=== PATIENT | male | born 1940 | race Caucasian/White ===

== ENCOUNTER 2017-06-11 00:27 | Day surgery (SDC) | payer MEDICARE ==
[2017-06-11] MEDS ORDERED: 0.9% Sodium Chloride 1,000 ML ONE (15:47)
[2017-06-12] MEDS ORDERED: ATOR20TA65 PO (13:21)
[2017-06-12] MEDS ORDERED: LISI-567 PO (13:21)
[2017-06-12] MEDS ORDERED: CARV6.252 PO (13:21)
[2017-06-12] MEDS ORDERED: ASPI81TA3 PO (13:21)
[2017-06-12] MEDS ORDERED: FURO40TA4 PO (13:23)
[2017-07-04] MEDS ORDERED: SPIR25TA3 PO (15:09)
[2017-07-04] MEDS ORDERED: LORA10CA9 PO (15:09)
[2017-07-04] MEDS ORDERED: TORS20TA3 PO (15:09)
[2017-07-04] MEDS ORDERED: POLY17PO2 PO (15:09)
[2017-07-04] MEDS ORDERED: BENZ100C8 PO (15:09)
[2017-07-04] MEDS ORDERED: CARV6.252 PO (15:09)
== END 2017-06-11 23:59 ==
LOC: SOUO 00:27
PROVIDERS: ATTEND Internal Medicine
DX: I42.9 Cardiomyopathy, unspecified (principal)

== ENCOUNTER 2017-06-11 07:46 | Inpatient (IN) | payer MEDICARE ==
[2017-06-11] VITALS (14 sets, daily range): BP systolic 112–138; BP diastolic 60–95; PULSE 36–83; RESP 12–20; O2SAT 93–99
[~2017-06-11] VITALS: Ht 170.2 cm; Wt 85.5 kg
[2017-06-11] MEDS ORDERED: Polyethylene Glycol (PEG) 17 Gm Powder PO PRN (12:20)
[2017-06-11] MEDS ORDERED: Alum-Mag Hydrox-Simeth 30 mL Suspension PO PRN (12:20)
[2017-06-11] MEDS ORDERED: Ondansetron 2 mg/mL 2 mL Inj IVPUSH PRN ×2 (12:20→20:25)
--- NOTE | 2017-06-11 15:34 | PCM.HPMED ---
Subjective Date of Service Jun 11, 2017 Primary Provider: Admitting Physician: Rick Aragon MD Primary Care Physician: David Smith MD Attending Physician: Rick Aragon MD Admit Status: Direct Admit Chief Complaint: CHF with reduced EF History of Present Illness: Victor M Anderson is a 77 year old man with a PMH of CAD with prior OH, DM2, Hypercholesterolemia, and HTN who presents as a direct admit from [facility] following an admission there for decompensated heart failure found to have an EF of 10-15%. The patient initially presented on 06/05/[address] [facility] with SOB and increasing LE edema. He underwent successful diuresis and was essentially hemodynamically stable with improved SOB. He underwent ECHO to determine his cardiac function post diuresis, and cardiac function was found to be markedly worse than his prior ECHO just several months ago with a decrease of EF from about 50% to 10-15%. Dr Deras from our cardiology team was contacted and the patient was transferred to our facility to undergo catheterization to determine if there was any reversible component to the patient's worsening cardiac function. At the time of arrival the patient denies chest pain, SOB, palpitations, nausea, vomiting, diarrhea, or diahporesis. Review of Systems: Comprehensive ROS negative except as listed above in the HPI Allergies Coded Allergies: Blandford Tree (Verified Allergy, Severe, Stuffy nose/head, trouble breathing, 06/11/17) Uncoded Allergies: Sea Food (Allergy, Severe, General Hives, Respiratory Difficulty, 06/11/17) Seasonal Allergies (Allergy, Mild, Respiratory Dificulty, Congestion, ) Allergic to hay, plants in the environment. Take allergy medication for that. Home Medications Flomax (dose not specified) Aspirin 81 mg PO daily Atenolol 50 mg PO daily Benzonatate 100 mg, TID Carvedilol 6.25 mg PO daily Lisinopril 20 mg PO daily Loratidine 10 mg PO daily Simvastatin 20 mg PO daily PMH Hypercholesterolemia CAD with prior OH DM2(borderline) HTN Surgical History Coronary Catheterization with stenting Deviated Septum . Family History Mother and sibling with DM2 Social History Hx Alcohol Use: No Hx Substance Use: No Living Arrangement: with Family Exam Vital Signs Vital Sign - Last Date Time Temp Pulse Resp B/P Pulse Ox O2 Delivery O2 Flow Rate FiO2 8/1/17 12:45 36.5 36 18 136/64 96 Room Air Exam Gen: A/O x3 pleasant cooperative gentleman in NAD Neck: Supple, non tender, no thyromegaly, no JVD HEENT: PERRL, EOMI, no scleral icterus, no conjunctival pallor CV: RRR, no murmurs rubs or gallops Resp: Lungs CTA BL, no wheezing rales or rhonchi Abd: No rebound guarding or tenderness, moderate size reducible umbilical hernia without erythema of pain Extr: No cyanosis clubbing or edema Neuro: CN 2-12 grossly intact, no focal neurologic deficit Psych: Pleasant and appropriate mood and affect. Assessment & Plan Victor M Anderson is a 77 year old man with a PMH of CAD s/p stenting, HTN, boderline DM2, and hypercholesterolemia who presents as a direct admit from [facility] for heart failure with markedly reduced EF 10-15% significantly worsened since prior ECHO earlier this year. The patient was transferred to undergo catheterization in order to determine if there is a reversible cause to his decompensation. Congestive Heart Failure with reduced EF, POA, acute on chronic. Active -Patient underwent ECHO at [facility] which demonstrated EF 10-15%, markedly worse than prior exam -Patient will undergo catheterization to attempt to establish etiology and whether there is a reversible cause to his decompensation -Will defer to Dr. Deras from cardiology for additional recommendations and cardiac medication regimen -Continue Tele monitoring -Continue home Aspirin HTN, POA, chronic. Active -Final recommendations will be determined by Dr. Deras -Continue Atenolol, Carvedilol, and Lisinopril Hypercholesterolemia -Transition home statin to Atorvastatin BPH, POA, chronic. Active -Continue home Flomax Patient Status: Inpatient, anticipated length of stay greater than 2 midnights due to risk of adverse event, severity of condition, and complexity of treatment plan. Pain Evaluation: Adequate Pain Control VTE Prophylaxis Indicated: Contraindicated (Patient will imminently undergo Coronary catheterization) VTE Mechanical Devices: Intermittant Pneumatic CD Resuscitation Status: Limited Interventions (Patient does not wish for Tracheostomy) Attending Statement Please note the patient also has history of coronary artery disease with previous coronary artery stenting. The patient was seen and examined together with Dr. Alvarenga on 06/11/2017 and I agree with the history, exam and plan as outlined in the note above. . Lauro Alvarenga DO Jun 11, 2017 15:34 Rick Aragon MD Jun 13, 2017 08:19
[2017-06-11] MEDS ORDERED: Heparin 10,000 Unit/1,000 mL NS Premix IV ONE ×2 (15:40→17:19)
[2017-06-11] MEDS ORDERED: Heparin 1,000 Units/500 mL NS Premix IV ONE (15:40)
[2017-06-11] MEDS ORDERED: fentaNYL-PF 50 mCg/mL 2 mL Inj ONE (16:06)
[2017-06-11] MEDS ORDERED: Nitroglycerin 50,000 mcg/250 mL D5W Premix IV ONE (16:41)
[2017-06-11] MEDS ORDERED: Heparin 1,000 Unit/mL 10 mL Inj ONE (16:41)
[2017-06-11] MEDS ORDERED: Adenosine 3 mg/mL 2 mL Inj ONE (17:18)
[2017-06-11] MEDS ORDERED: 0.9% Sodium Chloride 250 ML ONE (17:18)
--- NOTE | 2017-06-11 17:24 | PROG NOTE ---
[address] [address] PROGRESS NOTE PATIENT: DAVID RIZO : 1940 MR#: [id number] ADMIT: 06/11/2017 JOB ID: [id number] CARDIOLOGY PROGRESS NOTE: DATE: 06/11/2017 SUBJECTIVE: The patient is transferred today from [facility] to [facility] for cardiac catheterization and possible consideration of intervention for severe presumably ischemic cardiomyopathy. At [facility], the patient diuresed 10 pounds. He says his breathing is better and he is quite satisfied with how he is doing. He is able to lay flat and ambulate up and down the charles with no difficulty. I evaluated this patient at [facility] on June 07, 2017, and at that time recommended medical management that he could lie flat. Now that he can lie flat, he has been transferred here for further care. OBJECTIVE: Vital Signs: He is afebrile. Blood pressure 150/70, pulse 70 beats per minute. Satting 97% on 2 L nasal cannula. A very pleasant, elderly man in no apparent distress. Eyes: No scleral icterus. Neck is supple. No lymphadenopathy. Neck veins are at 7 cm. Heart: Normal S1, S2. No murmurs, rubs, or gallops. Lungs: Clear to auscultation anteriorly. Legs show no lower extremity edema. Right common femoral artery with no bruits. LABORATORY AND RADIOLOGY: Reviewed echocardiogram performed at [place], June 10, 2017, demonstrated severely reduced left ventricular systolic function. Ejection fraction 20% to 25%. Moderate severe global hypokinesis as well as akinesis as well as inferior wall. There is synchronous contraction secondary to left bundle branch block. RV function is normal. Severe left atrial enlargement. Mild to moderate right atrial enlargement. Mild to moderate mitral regurgitation. No significant valvular abnormalities otherwise. The patient's most recent labs are from yesterday, June 10. They show a creatinine of 1.1, sodium 141, potassium 3.9, glucose 121. ASSESSMENT AND PLAN: In summary, this is a delightful 77-year-old man who just underwent cardiac catheterization. He appears to have severe coronary artery disease with occluded right coronary artery via [id number] collaterals. This is a difficult situation. He is not a great surgical candidate due to severe cardiomyopathy and he may best be managed interventionally. Thank you very much for the opportunity to evaluate him.
--- NOTE | 2017-06-11 18:34 | DI95 ---
[address] [address] INTERVENTIONAL CARDIAC CATHETERIZATION PATIENT: DAVID RIZO : 1940 MR#: [id number] ADMIT: 06/11/2017 JOB ID: [id number] PROCEDURE: Fractional flow reserve of the left anterior descending. INDICATION: Borderline lesion in the mid LAD. This patient had a borderline lesion in the LAD. The lesion was towards the end of a tubular stenosis of 30% to 40%. This was followed by an area of dilatation suggesting that this lesion might be tight. However, angiographically it was hard to evaluate this lesion. An FFR was performed. The FFR was 0.75 thereby confirming the severity of this lesion. This patient has severe LV dysfunction. In view of this, no intervention was done. I will be discussing his treatment options with his primary web marketing specialist, Dr. Deras.
--- NOTE | 2017-06-11 19:25 | NUR ---
Arrived 806 - Received report from Kait LAM at [facility]. She said he would be transported via EMS about 0830. Call back number [phone]. 924 - He arrived to [facility] and was settled into his room. His and some other family members came with him as well. His assessment, H/P, allergies, and skin check were completed. The admission nurse was called to complete his medication req. Notified ice resurfacing machine operators. 949 - Discussed his care with Dr. Aragon, Dr. Alvarenga, and the rest of the multidisciplinary care team during morning rounds. Dr. Aragon said that his ejection fraction was 10-15% and that Dr. Deras was following him closely. 1157 - Sent a message to Dr. Aragon asking if the patient could be assessed by the [facility] team and have orders placed. Also, notified him per the patient's notification that his is a [employer] Medicine Doctor and that staff should not even mention the possibility of the patient dying to his when describing procedures and such. He was assessed and orders were placed. 1420 - Called and spoke to Fran from the Website Designer who said the patient would be leaving for the Website Designer about 1600. 1444 - Fran called to say the patient would be leaving for the malthouse laborer closer to 1530 and that he needed two IVs (which the patient already had). 1539 - The Craft Superintendent called to notify this nurse that for the last five minutes his heart rate had decreased to the 50s. She said it was starting to increase again. The patient was sleeping. Dr. Aragon was nearby and was notified. No new orders. 1553 - He left for the Website Designer. Report called to Mauro LAM in [facility]. His family went home. tool storage attendant given report. Care continues.
[2017-06-11 20:06] LABS: BASOPHILS % (AUTO) 0.4 % (0-3); EOSINOPHILS % (AUTO) 4.5 % (0-5); MONOCYTES % (AUTO) 12.3 % (4-12); Mean Corpuscular Hemoglobin 30.2 pg (27.0-35.0); Mean Corpuscular Volume 91.3 fL (81-100); NEUTROPHILS % (AUTO) 66.6 % (40-74); Platelet Count 178 bil/L (150-400)
[2017-06-11] MEDS ORDERED: 0.9% Sodium Chloride 400 ML (4 HRS) IV ONE (20:25)
[2017-06-11] MEDS ORDERED: Sodium Chloride LOK Flush 10 mL Syringe IVFLUSH PRN (20:25)
[2017-06-11] MEDS ORDERED: 0.9% Sodium Chloride 250 ML BOLUS IV PRN (20:25)
--- NOTE | 2017-06-11 21:27 | NUR ---
home medication list arrived in room to complete home medication list. patient not able to confirm list that arrived from [facility]. no eRX available. per patient report spouse is at home but does not speak very good malay so unable to obtain list over the phone from family. patient states that he goes to [facility] which is currently closed. noc rn notified and to pass on to day rn to have them call [facility] for med list in the am 06/12/17.
[2017-06-12 03:26] LABS: BASOPHILS % (AUTO) 0.4 % (0-3); EOSINOPHILS % (AUTO) 5.7 % (0-5); MONOCYTES % (AUTO) 15.1 % (4-12); Mean Corpuscular Hemoglobin 30.7 pg (27.0-35.0); NEUTROPHILS % (AUTO) 61.5 % (40-74); Platelet Count 168 bil/L (150-400)
[2017-06-12 03:53] LABS: Magnesium 2.1 mg/dL (1.6-2.6); Phosphorus 3.7 mg/dL (2.5-4.9)
[2017-06-12 04:33] VITALS: BP 119/80; PULSE 80; RESP 16
--- NOTE | 2017-06-12 06:06 | NUR ---
Groin Site/NPO Patient's right groin site soft, non-tender, with small amount of sanguineous drainage on the dressing that remained unchanged overnight. Patient denies pain. Per report from [facility], patient kept NPO after midnight pending return to laboratory scientist today.
--- NOTE | 2017-06-12 08:03 | CS94 ---
[address] [address] DIAGNOSTIC CARDIAC CATHETERIZATION PATIENT: DAVID RIZO : 1940 MR#: [id number] ADMIT: 06/11/2017 JOB ID: [id number] SERVICE DATE: 06/11/2017 CHIEF COMPLAINT: Shortness of breath. PATIENT PRESENTATION: The patient is a delightful, 77-year-old man who has been having severely progressive shortness of breath for the past few months. Patient was admitted at [facility] and I went to see him there. The patient reported 20 pound weight gain. He was diuresed 10 pounds and transferred for cardiac catheterization. Now he is adequately diuresed and able to lie flat. PROCEDURES PERFORMED: 1. Right and left heart catheterization. 2. Selective coronary angiogram. 3. Right common femoral artery vascular access ultrasound guidance. HEMODYNAMICS: 1. Right atrial pressure is 5 mmHg. Right ventricular pressure is 40 with end-diastolic of 3. Pulmonary artery pressure is 40/20. Pulmonary capillary wedge pressure is 12 mmHg. Left ventricular end-diastolic pressure is 25 mmHg. Aortic pressure 121/61 mL stenosis based on pullback. The patient was in normal sinus rhythm with frequent PVCs during the case. 2. Coronary angiograms: The left main is a normal caliber vessel. It gives rise to LAD and the circumflex. There is some mild ostial disease but it does not dampen on engagement and it demonstrates excellent blow back. 3. LAD gives rise to a first diagonal branch followed by an aneurysmal outpouching. There is a septal tensile tester coming out of that area of aneurysmal outpouching. The area immediately prior to the first diagonal branch has a crain band appearance. This is best appreciated on cross-table lateral view. 4. The LAD is diffusely diseased. The only focal lesion is that possible intermediate 50% lesion proximal to the first diagonal branch. 5. The LAD gives rise to a medium-sized second diagonal branch, small 3rd and 4th diagonal branches. Otherwise, no obstructive lesions are seen. 6. Circumflex is a nondominant vessel. It gives rise to first bifurcating obtuse marginal branch that is a medium-sized vessel, 2nd medium obtuse marginal branch and a third obtuse marginal branch which appears to feed PDA and RCA retrograde via collateral circulation. 7. There is 50% disease present in the proximal portion of the circumflex. This is best appreciated on the spider view. Otherwise, no obstructive lesions are seen. 8. The right coronary artery is a dominant vessel. It gives rise to PDA and posterior lateral branch but it appears to be occluded proximally. There appears to be a previously deployed stent in the right coronary artery. It is in the proximal vessel. It is complicated by 50% long in-stent restenosis lesion. Then right coronary artery gives rise to a bifurcating medium sized RV branch and then it is subtotally occluded. 9. Cardiac output via Adriano method is 4.7 L/minute with cardiac index of 2.4 L/minute per m2. Thermodilution cardiac output is 3.9 L/min with index of 1.9 L/minute per m2. IMPRESSION: 1. Intermediate 50% proximal left anterior descending lesion. 2. Intermedius 50% proximal circumflex lesion. 3. Chronic total occlusion of right coronary artery distal to the right ventricular branch. The posterior descending artery appears to be fed via [id number] collaterals. 4. Severe three-vessel disease involving 50% proximal left anterior descending, 50% proximal circumflex and ostial OM1, and chronic total occlusion of the right coronary artery fed via [id number] collaterals. This is best appreciated in LYN cranial view. PLAN: Because the lesions in prox LAD and proximal circumflex are intermediate, I appreciate Dr. Mabry's expertise and possible fractional flow reserve evaluation. In terms of hemodynamics, the patient's pulmonary capillary wedge pressure is 12.
[2017-06-12 09:25] VITALS: BP 117/55; PULSE 89; RESP 20; O2SAT 94
[2017-06-12 11:13] VITALS: PULSE 68
--- NOTE | 2017-06-12 12:26 | PROG NOTE ---
[address] [address] PROGRESS NOTE PATIENT: DAVID RIZO : 1940 MR#: [id number] ADMIT: 06/11/2017 JOB ID: [id number] CARDIOLOGY PROGRESS NOTE: DATE: 06/12/2017 SUBJECTIVE: This morning, the patient was tearful and anxious. He understands that cardiac catheterization demonstrated hemodynamically significant proximal LAD lesion. FFR was 0.75 confirming the severity of this lesion, so the patient has severe proximal LAD lesion, as well as chronic total occlusion of the right and moderate lesion of the circumflex in the setting of severe ischemic cardiomyopathy with ejection fraction of 15%. The patient is tearful. He said he did not want to go through more tests and diagnostics and would like to go home and think about his options. OBJECTIVE: Vital signs reviewed. Temperature 36.5, blood pressure 117/55, he is satting 94% on room air. Eyes: No scleral icterus. Heart: Normal S1, S2. No murmurs. Lungs: Clear to auscultation anteriorly. Abdomen is soft, positive bowel sounds. No hepatosplenomegaly. Extremities: Warm and well perfused. No clubbing, cyanosis, or edema. Skin: No rashes or lesions. LABORATORY DATA: Labs reviewed. His CBC is good. His hematocrit is good. His creatinine is good. He has mildly reduced albumin today. ASSESSMENT AND PLAN: A 77-year-old man with severe ischemic cardiomyopathy and severe proximal left anterior descending disease and occluded right coronary artery. He declines intervention at this time. The plan for this patient is to go home today on current medicines including aspirin, carvedilol, lisinopril, atorvastatin and Lasix. I recommend for him to be fitted with a Life Vest and he understands the rationale for this. I will follow up with him in clinic. I will also request an outpatient surgical consultation to render an opinion of his eligibility for surgical revascularization. We will meet in clinic and discuss his treatment options which include medical therapy, plus possible revascularization; either percutaneous or surgical, as well as device therapy. Since he has left bundle branch block and cardiomyopathy, he would benefit from biventricular implantable cardioverter-defibrillator if that is what he chooses. Thank you very much for the opportunity to participate in this patient's care.
--- NOTE | 2017-06-12 12:30 | NUR ---
Social Work-initial assessment/ readiness for discharge: Data:See initial assessment. Pt is a 77 y/o male who was admitted on 06/11/17 for CHF per H&P. Pt's insurance is [facility] and PCP is David Smith MD. EMR Reviewed. SW met with pt at bedside, SW role explained. Pt is alert and oriented x3. Pt resides at home with his in [place] where he remains independent with ADLS. Pt does not use any DME and does drive. pt has no HH or SNF history. Pt has no terminal worker care insurance or VA benefits. SW discussed DPOA/advanced directive, information has been provided. Pt confirms his will provide transport home at discharge. SW provided pt with discharge planning checklist, encouraged pt to call with any questions, phone number provided. No anticipated discharge needs identified. SW will continue to follow if needs arise. Assessment:Pt who is independent at baseline. Plan:Pt to discharge home when medically stable via POV. No anticipated discharge needs identified. SW will continue to follow if needs arise. PHIL Carter Addendum: 06/12/17 at 1241 by JOSH AYALA Amended: Links added.
[2017-06-12 13:03] VITALS: BP 119/74; PULSE 71; RESP 20; O2SAT 95
--- NOTE | 2017-06-12 13:16 | PCM.DIMED ---
Malick Neri DO 06/12/17 1316: Discharge Instructions Date of Service Jun 12, 2017 Dates of Hospitalization Jun 11, 2017 at 09:26 Discharge Diagnosis Discharge Diagnosis Congestive Heart Failure with reduced EF, POA, acute on chronic. Active HTN, POA, chronic. Active Hypercholesterolemia BPH, POA, chronic. Active Medication Instructions Additional med instructions Please continue to take your medications as outlined in the hospital Aspirin 81 mg daily Carvedilol 6.25 mg daily Lisinopril 20 mg daily Atorvastatin 20 mg at night Furosemide 40 mg daily Test Results Test Results Abdominal x-ray reveals only findings related to your congestive heart failure. No other abdominal findings noted. Diet Discharge Diet: Low fat, Low Sodium, Heart Healthy Activity Discharge Activity: Limited until seen by PCP Call your provider Call your provider for: Fever or Chills, Shortness of breath, Bleeding, Chest pain, Vomitting, Excessive diarrhea, Weakness (unilateral) Patient Instructions Patient Instructions You initially came to the hospital for shortness of breath and increasing leg swelling. Based on the results of your echocardiogram done at [facility], your congestive heart failure has worsened significantly. A catheterization done here in the hospital shows a lesion in the LAD artery of your heart, however this was not able to be treated at this time by cardiology. Please follow-up with cardiology for further recommendations. Please follow medication regimen as described above. You will be fitted with a Life Vest prior to being discharged from the hospital. Follow-up plan Follow-up closely with cardiology for further recommendations and/or possible interventions. Follow-up Provider: Yeni Deras MD Follow-up with PCP in: 2 weeks Provider: David Smith MD Follow-up in: 1 week CHF Clinic: 1 week Rick Aragon MD 06/13/17 0820: Discharge Instructions Attending's Statement The patient was seen and examined together with Dr. Neri on 06/12/2017 and I agree with the history, exam and plan as outlined in the note above. . Malick Neri DO Jun 12, 2017 13:16 Rick Aragon MD Jun 13, 2017 08:20
[2017-06-12] MEDS ORDERED: ATOR20TA65 PO (13:21)
[2017-06-12] MEDS ORDERED: ASPI81TA3 PO (13:21)
[2017-06-12] MEDS ORDERED: CARV6.252 PO (13:21)
[2017-06-12] MEDS ORDERED: LISI-567 PO (13:21)
[2017-06-12] MEDS ORDERED: FURO40TA4 PO (13:23)
--- NOTE | 2017-06-12 14:23 | NUR ---
Social Work: Discharge Data: Pt is on day 1 of hospitalization. EMR reviewed. D/C orders are in. No d/c planning needs at this time. STUDENT OFFICER will continue to follow if needs arise. Assessment: Pt who is independent at baseline. Plan: Pt will d/c home via POV today. No d/c planning needs at this time. STUDENT OFFICER will continue to follow if needs arise. PHIL Hines
[2017-06-12 16:13] VITALS: BP 137/77; PULSE 76; RESP 20; O2SAT 95
--- NOTE | 2017-06-12 19:05 | PCM.DC.MED ---
Discharge Summary Date of Service Jun 12, 2017 Dates of Hospitalization Date of Hospital Admission Jun 11, 2017 at 09:26 Date of Discharge: Jun 12, 2017 Providers: Admitting Physician: Rick Aragon MD Primary Care Physician: David Smith MD Attending Physician: Rick Aragon MD Diagnosis at Time of Discharge Diagnosis at Time of Discharge Congestive Heart Failure with reduced EF, POA, acute on chronic. Active HTN, POA, chronic. Active Hypercholesterolemia BPH, POA, chronic. Active Consultations Cardiology: Dr. Deras Procedures XRay, CTs & MRIs X-RAY ACUTE ABDOMINAL SERIES IMPRESSION: 1. Findings suggestive of cardiomegaly and acute congestive heart failure. 2. No acute process in the abdomen. 3. Discussed with Dr. Mathis in the urgent care clinic. Dictated by: Jane Lowe MD on 06/02/2017 at 15:10 Transcribed by: ROSA on 06/02/2017 at 19:21 Approved by: Jane Lowe MD on 06/04/2017 at 8:28 Invasive Procedures DIAGNOSTIC CARDIAC CATHETERIZATION IMPRESSION: 1. Intermediate 50% proximal left anterior descending lesion. 2. Intermedius 50% proximal circumflex lesion. 3. Chronic total occlusion of right coronary artery distal to the right ventricular branch. The posterior descending artery appears to be fed via [id number] collaterals. 4. Severe three-vessel disease involving 50% proximal left anterior descending, 50% proximal circumflex and ostial OM1, and chronic total occlusion of the right coronary artery fed via [id number] collaterals. This is best appreciated in LYN cranial view. Yeni Deras MD 06/11/17 6760 Brief History Taken from history of present illness transcribed by Dr. Alvarenga: "Victor M Anderson is a 77 year old man with a PMH of CAD with prior HI, DM2, Hypercholesterolemia, and HTN who presents as a direct admit from [facility] following an admission there for decompensated heart failure found to have an EF of 10-15%. The patient initially presented on 06/05/17 to [facility] with SOB and increasing LE edema. He underwent successful diuresis and was essentially hemodynamically stable with improved SOB. He underwent ECHO to determine his cardiac function post diuresis, and cardiac function was found to be markedly worse than his prior ECHO just several months ago with a decrease of EF from about 50% to 10-15%. Dr Deras from our cardiology team was contacted and the patient was transferred to our facility to undergo catheterization to determine if there was any reversible component to the patient's worsening cardiac function. At the time of arrival the patient denies chest pain, SOB, palpitations, nausea, vomiting, diarrhea, or diahporesis." Hospital Course Victor M Anderson is a 77 year old man with a PMH of CAD s/p stenting, HTN, boderline DM2, and hypercholesterolemia who presents as a direct admit from [facility] for heart failure with markedly reduced EF 10-15% significantly worsened since prior ECHO earlier this year. The patient was transferred to undergo catheterization in order to determine if there is a reversible cause to his decompensation. Congestive Heart Failure with reduced EF, POA, acute on chronic. Active -Patient underwent ECHO at [facility] which demonstrated EF 10-15%, markedly worse than prior exam -Patient underwent catheterization in an attempt to establish etiology, he was found to have a lesion of the LAD which was not amenable to stenting at this time. -Per Dr. Deras (cardiology) the patient will be started at this time on aspirin, carvedilol, lisinopril, atorvastatin, Lasix -Dr. Deras would like to have the patient follow-up on an outpatient basis. -LifeVest provided for the patient prior to discharge. HTN, POA, chronic. Active -Continue Carvedilol, Lasix and Lisinopril Hypercholesterolemia -Continue Atorvastatin BPH, POA, chronic. Active -Continue home Flomax Exam Vital Signs (Last) Date Time Temp Pulse Resp B/P Pulse Ox O2 Delivery O2 Flow Rate FiO2 06/12/17 16:13 36.7 76 20 137/77 95 Room Air 06/11/17 19:00 2.00 Exam General: No acute distress, well-developed, well-nourished HEENT: Normocephalic, atraumatic. External ears without defect. Pupils equal, round, and reactive to light and accommodation. Anicteric sclerae, moist conjunctivae. Cardiovascular: Regular rate and rhythm with no murmurs, rubs, or gallops appreciated Pulmonary: Clear to auscultation bilaterally with no crackles, wheezes, or rhonchi. Normal respiratory effort with no use of accessory muscles. Abdomen: Bowel tones present. Soft, nontender, nondistended. moderate size reducible umbilical hernia non-erythematous Extremities: No clubbing, cyanosis, edema Skin: Normal temperature, turgor, and texture; no rash, ulcers, or subcutaneous nodules appreciated. Neurological: Cranial nerves grossly intact. Reflexes, coordination, and sensory function within normal limits. Normal muscle strength, tone, and bulk. Psychiatric: Normal mood and affect. Alert and oriented to person, place, and time Test 06/11/17 11:13 06/12/17 02:48 Hold Urine Received (Received) White Blood Count 7.4th/mm3 (3.8-10.1) Red Blood Count 4.99mil/mm3 (4.40-5.80) Hemoglobin 15.3g/dL (13.8-17.2) Hematocrit 45.9% (41.0-50.0) Mean Corpuscular Volume 92.0fL (81-100) Mean Corpuscular Hemoglobin 30.7pg (27.0-35.0) Mean Corpuscular Hemoglobin Concent 33.3% (32.0-37.0) Red Cell Distribution Width 14.5% (12.3-15.4) Platelet Count 168bil/L (150-400) Neutrophils (%) (Auto) 61.5% (40-74) Lymphocytes (%) (Auto) 17.0% (14-46) Monocytes (%) (Auto) 15.1% (4-12) Eosinophils (%) (Auto) 5.7% (0-5) Basophils (%) (Auto) 0.4% (0-3) Prothrombin Time 10.7sec (8.1-12.5) Prothromb Time International Ratio 1.00ratio Sodium Level 139mEq/L (134-144) Potassium Level 4.0mEq/L (3.5-5.2) Chloride Level 101mEq/L (97-108) Carbon Dioxide Level 24mmol/L (18-29) Blood Urea Nitrogen 22mg/dL (8-27) Creatinine 0.99mg/dL (0.76-1.27) Estimat Glomerular Filtration Rate 78mL/min (>59) Glucose Level 136mg/dL (60-99) Calcium Level 8.5mg/dL (8.5-10.1) Phosphorus Level 3.7mg/dL (2.5-4.9) Magnesium Level 2.1mg/dL (1.6-2.6) Total Bilirubin 0.5mg/dL (0.0-1.2) Aspartate Amino Transf (AST/SGOT) 25U/L (0-50) Alanine Aminotransferase (ALT/SGPT) 27U/L (0-44) Alkaline Phosphatase 97U/L (25-160) Total Protein 5.6g/dL (6.4-8.4) Albumin 3.2g/dL (3.4-5.0) Discharge Medications Discharge Medications Aspirin Chew (Aspirin Chew) 81 Mg Chew 81 MG PO DAILY Prescribed by: DIANE RUSSO DO Atorvastatin Calcium (Atorvastatin Calcium) 20 Mg Tablet 20 MG PO HS Prescribed by: DIANE RUSSO DO Carvedilol (Carvedilol) 6.25 Mg Tablet 6.25 MG PO DAILY Prescribed by: DIANE RUSSO DO Furosemide (Furosemide) 40 Mg Tablet 40 MG PO DAILY Prescribed by: DIANE RUSSO DO Lisinopril (Lisinopril) 20 Mg Tablet 20 MG PO DAILY Prescribed by: DIANE RUSSO, DO Additional med instructions Please continue to take your medications as outlined in the hospital Aspirin 81 mg daily Carvedilol 6.25 mg daily Lisinopril 20 mg daily Atorvastatin 20 mg at night Furosemide 40 mg daily Followup Plan Disposition: Home Follow-up plan Follow-up closely with cardiology for further recommendations and/or possible interventions. Discharge Diet: Low fat, Low Sodium, Heart Healthy Discharge Activity: Limited until seen by PCP Patient Instructions You initially came to the hospital for shortness of breath and increasing leg swelling. Based on the results of your echocardiogram done at [place], your congestive heart failure has worsened significantly. A catheterization done here in the hospital shows a lesion in the LAD artery of your heart, however this was not able to be treated at this time by cardiology. Please follow-up with cardiology for further recommendations. Please follow medication regimen as described above. You will be fitted with a Life Vest prior to being discharged from the hospital. Follow-up Provider: Yeni Deras MD Follow-up with PCP in: 2 weeks Provider: David Smith MD Follow-up in: 1 week CHF Clinic: 1 week Time spent Greater than 35 minutes spent in documentation and coordination of discharge. Attending Statement The patient was seen and examined together with Dr. Russo on 06/12/2017 and I agree with the history, exam and plan as outlined in the note above. . copies to: David Smith MD, Adam J DO Jun 12, 2017 19:05 Rick Aragon MD Jun 13, 2017 08:20
--- NOTE | 2017-06-12 19:25 | NUR ---
D/C note.. pt has been up amb in room and is edwina activity well without any chest pain or SOB. Seen by cardiology and pt made the decision not to proceed with another heart cath. [facility] for [facility] life vest. Will d/c shortly accompanied by with his belongings.
== END 2017-06-12 19:50 | disposition home or self-care (01) | DRG 287 ==
LOC: PCC 09:26
PROVIDERS: ADMIT Internal Medicine; ATTEND Internal Medicine
PROC: 4A023N8 Measurement of Cardiac Sampling and Pressure, Bilateral, Percutaneous Approach (ICD-10-PCS; principal; 2017-06-11)
PROC: B2111ZZ Fluoroscopy of Multiple Coronary Arteries using Low Osmolar Contrast (ICD-10-PCS; 2017-06-11)
PROC: 4A033BC Measurement of Arterial Pressure, Coronary, Percutaneous Approach (ICD-10-PCS; 2017-06-11)
DX: I50.23 Acute on chronic systolic (congestive) heart failure (principal); I25.5 Ischemic cardiomyopathy; I25.10 Atherosclerotic heart disease of native coronary artery without angina pectoris; I25.82 Chronic total occlusion of coronary artery; I25.2 Old myocardial infarction; Z79.82 Long term (current) use of aspirin; I10 Essential (primary) hypertension; N40.0 Benign prostatic hyperplasia without lower urinary tract symptoms; E78.00 Pure hypercholesterolemia, unspecified